=== PATIENT | female | born 1965 | race Caucasian/White ===

== ENCOUNTER 2017-05-29 13:15 | Emergency (ER) | payer MEDICARE ==
[~2017-05-29] VITALS: Ht 175.3 cm; Wt 106.6 kg
[~2017-05-29 13:15] MED LIST: AMLO10TA2 PO; CYCL10TA2 PO; FENT1PAT13 TD; FLUO40CA2 PO; HYDR-963 PO; LINA145C PO; ONDA4TAB7 PO; OXYC10TA45 PO; PREG100C PO; PROAIR HFA8.5 GM IH
[2017-05-29 14:03] VITALS: BP 150/70
[2017-05-29] MEDS ORDERED: DOXY100C2 PO (14:37)
[2017-05-29] MEDS ORDERED: MUPI15CR TP (14:37)
--- NOTE | 2017-05-29 14:37 | PHYS DOC ---
Past Medical History Past Medical History: Anxiety, Depression, Fibromyalgia, Hypertension, Migraines Past Surgical History: Other Additional Past Surgical Histo: ankle surgery, PLATE REMOVED FROM ANKLE Alcohol Use: None Drug Use: None Adult General Chief Complaint Chief Complaint: Congestion HPI HPI Patient is a 52 year old female presents to the emergency department stating that she has some sores on the right side of her neck that has been healing and then appears to come back. She states that she's been having these for the last month. She states that she's been placing antibiotic ointment over the area with relief. Patient then states she's had a nasal congestion with sinus pressure for the last few days. She denies fever, chills or any nausea or vomiting. She does state that she's had a cough this been nonproductive. She does state that she has some wheezing and feels short of air at times. Patient does state she has a history of smoking. Review of Systems Review of Systems Constitutional: Denies fever or chills [] Eyes: Denies change in visual acuity, redness, or eye pain [] HENT: nasal congestion denies sore throat [] Respiratory: cough and shortness of breath [] Cardiovascular: No additional information not addressed in HPI [] GI: Denies abdominal pain, nausea, vomiting, bloody stools or diarrhea [] : Denies dysuria or hematuria [] Musculoskeletal: Denies back pain or joint pain [] Integument: Denies rash or skin lesions [] Neurologic: Denies headache, focal weakness or sensory changes [] Endocrine: Denies polyuria or polydipsia [] Current Medications Current Medications Current Medications Medications (Trade) Dose Ordered Sig/[facility] Start Time Stop Time Status Last Admin Dose Admin Albuterol/ Ipratropium (Duoneb) 3 ml 1X ONCE 05/29/17 14:45 05/29/17 14:46 DC 05/29/17 15:01 3 ML Allergies Allergies Allergies Coded Allergies Type Severity Reaction Last Updated Verified No Known Drug Allergies 09/08/13 No Physical Exam Physical Exam Constitutional: Well developed, well nourished, no acute distress, non-toxic appearance. [] HENT: Normocephalic, atraumatic, bilateral external ears normal, oropharynx moist, no oral exudates, nose normal. Bilateral tympanic membranes appear to be normal throat with postnasal drip and slightly red no exudate or erythematous noted. No uvula deviation. Eyes: PERRLA, EOMI, conjunctiva normal, no discharge. [] Neck: Normal range of motion, no tenderness, supple, no stridor. [] Cardiovascular:Heart rate regular rhythm, no murmur [] Lungs & Thorax: Right posterior lungs appear to be loose wheezing. Skin: Warm, dry, no erythema, patient with open sores noted on the right side of the neck no drainage or discharge coming from the site. Back: No tenderness Extremities: No tenderness, no cyanosis, no clubbing, ROM intact, no edema. [] Neurologic: Alert and oriented X 3, normal motor function, normal sensory function, no focal deficits noted. [] Psychologic: Affect normal, judgement normal, mood normal. [] Current Patient Data Vital Signs Vital Signs Date Time Temp Pulse Resp B/P (MAP) Pulse Ox O2 Delivery O2 Flow Rate FiO2 05/29/17 15:02 97 Room Air 05/29/17 14:03 97.8 84 18 97.8 EKG EKG [] Radiology/Procedures Radiology/Procedures [] Course & Med Decision Making Course & Med Decision Making Pertinent Labs and Imaging studies reviewed. (See chart for details) Patient was provided with respiratory treated. Patient states she feels better. She will be discharged home. Patient will be placed on doxycycline for an upper respiratory infection. She'll be provided with a pro-air inhaler to help with shortness of air and wheezing. She'll also be placed on prednisone. Recommended [id number] Tylenol or ibuprofen for fever chills or generalized body aches and discomfort. Patient will be discharged home in stable condition signs and symptoms to return back to the emergency department as been provided. All questions and concerns have been answered at patient's bedside. [] Dragon Disclaimer Dragon Disclaimer This electronic medical record was generated, in whole or in part, using a voice recognition dictation system. Departure Departure Impression: Primary Impression: Acute sinusitis Disposition: 01 HOME, SELF-CARE Condition: STABLE Referrals: ANTWAN CURTIS MD (PCP) Patient Instructions: Sinusitis, Gepl-hq-Peul, Smoking Cessation, Tips For Success Additional Instructions: Activity as tolerated. Medications as prescribed. Tylenol or ibuprofen for fever chills or generalized body aches and discomfort. 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 Drink plenty of fluids. Stop smoking. Follow-up to primary care physician in the next week. Return back to emergency prior signs symptoms of become worse. Scripts Prednisone (PREDNISONE) 20 Mg Tablet 40 MG PO DAILY for 7 Days, #14 TAB Prov: JIMBO RAMIREZ APRN 05/29/17 Albuterol Sulfate (ALBUTEROL SULFATE CONC NEB SOLN) 2.5 Mg/0.5 Ml Vial.neb 1 VIAL NEB Q6HRS, #120 VIAL 0 Refills Prov: JIMBO RAMIREZ APRN 05/29/17 Albuterol Sulfate (PROAIR HFA INHALER) 8.5 Gm Hfa.aer.ad 1 PUFF INH PRN Q6HRS Y for SHORTNESS OF BREATH, #1 INHALER 0 Refills Prov: JIMBO RAMIREZ APRN 05/29/17 Mupirocin Calcium (BACTROBAN CREAM) 15 Gm Cream..g. 1 FREDO TP TID, #30 GM Prov: JIMBO RAMIREZ APRN 05/29/17 Doxycycline Hyclate (DOXYCYCLINE HYCLATE) 100 Mg Capsule 1 CAP PO BID, #20 CAP Prov: JIMBO RAMIREZ APRN 05/29/17 Problem Qualifiers Primary Impression: Acute sinusitis Sinusitis location: unspecified location Recurrence: not specified as recurrent Qualified Codes: J01.90 - Acute sinusitis, unspecified JIMBO RAMIREZ APRN May 29, 2017 14:37
[2017-05-29] MEDS ORDERED: PROAIR HFA8.5 GM INH (14:38)
[2017-05-29] MEDS ORDERED: IPRATRPIUM/ALBUTEROL 0.5/2.5MG 3 ML NEBU. NEB ONE (14:45)
[2017-05-29] MEDS ORDERED: ALBU2.5V14 NEB (15:05)
[2017-05-29] MEDS ORDERED: PRED20TA PO (15:13)
== END 2017-05-29 15:20 | disposition home or self-care (01) ==
LOC: ER 13:15
DX: J01.90 Acute sinusitis, unspecified (principal); M54.2 Cervicalgia; I10 Essential (primary) hypertension; M79.7 Fibromyalgia; G43.909 Migraine, unspecified, not intractable, without status migrainosus
CPT/HCPCS: 94250; 94640; 94760; 99283; J7620

== ENCOUNTER 2017-10-27 01:49 | Emergency (ER) | payer MEDICARE ==
[2017-10-27 02:41] LABS: ADD MAN DIFF? NO
[2017-10-27 02:43] LABS: BASO # 0.2 x10^3/uL (0.0-0.2); BASO % 1 % (0-3); EOS # 0.2 x10^3/uL (0.0-0.7); EOS % 2 % (0-3); HEMATOCRIT 43.7 % (36.0-47.0); HEMOGLOBIN 15.2 g/dL (12.0-15.5); LYMPH # 3.2 x10^3/uL (1.0-4.8); LYMPH % 23 % (24-48); MEAN CORPUSCULAR HEMOGLOBIN 33 pg (25-35); MEAN CORPUSCULAR HGB CONC 35 g/dL (31-37); MEAN CORPUSCULAR VOLUME 94 fL (79-100); MONO # 0.6 x10^3/uL (0.0-1.1); MONO % 4 % (0-9); NEUT # 9.7 x10^3uL (1.8-7.7); NEUT % 70 % (31-73); PLATELET COUNT 331 x10^3/uL (140-400); RED BLOOD COUNT 4.63 x10^6/uL (3.50-5.40); RED CELL DISTRIBUTION WIDTH 16.4 % (11.5-14.5); WHITE BLOOD COUNT 13.9 x10^3/uL (4.0-11.0)
[2017-10-27 02:54] LABS: ANION GAP 9 (6-14); BILIRUBIN,URINE NEGATIVE (NEG); BLOOD UREA NITROGEN 12 mg/dL (7-20); BUN/CREATININE RATIO 17 (6-20); CALCIUM 8.8 mg/dL (8.5-10.1); CARBON DIOXIDE 27 mmol/L (21-32); CHLORIDE 101 mmol/L (98-107); CLARITY,URINE CLEAR; COLOR,URINE YELLOW; CREATININE 0.7 mg/dL (0.6-1.0); GFR 88.2; GLUCOSE 101 mg/dL (70-99); GLUCOSE,URINE NEGATIVE (NEG); NITRITE,URINE NEGATIVE (NEG); POTASSIUM 3.5 mmol/L (3.5-5.1); PROTEIN,URINE NEGATIVE (NEG-TRACE); SODIUM 137 mmol/L (136-145); UROBILINOGEN,URINE 0.2 mg/dL (0.2 mg/dL)
[2017-10-27 03:00] LABS: ALBUMIN 3.7 g/dL (3.4-5.0); ALBUMIN/GLOBULIN RATIO 0.9 (1.0-1.7); ALK PHOS 93 U/L (46-116); ALT (SGPT) 20 U/L (14-59); AST (SGOT) 21 U/L (15-37); TOTAL BILIRUBIN 0.2 mg/dL (0.2-1.0); TOTAL PROTEIN 7.6 g/dL (6.4-8.2)
[2017-10-27 03:01] LABS: BACTERIA,URINE 0 /HPF (0-FEW); RBC,URINE 0 /HPF (0-2); SQUAMOUS EPITHELIAL CELL,UR MANY /LPF; WBC,URINE OCC /HPF (0-4); YEAST,URINE PRESENT /HPF
== END 2017-10-27 03:50 | disposition home or self-care (01) ==
LOC: ER 01:49
DX: R10.30 Lower abdominal pain, unspecified (principal); B37.2 Candidiasis of skin and nail; E78.00 Pure hypercholesterolemia, unspecified; G89.29 Other chronic pain; J44.9 Chronic obstructive pulmonary disease, unspecified; M79.7 Fibromyalgia; I10 Essential (primary) hypertension
CPT/HCPCS: 36415; 80053; 81001; 85025; 99284

== ENCOUNTER 2018-07-13 20:02 | Emergency (ER) | payer MEDICARE ==
[~2018-07-13] VITALS: Ht 172.7 cm; Wt 106.6 kg
[~2018-07-13 20:02] MED LIST changes: +ALBU2.5V14 NEB; -AMLO10TA2 PO; +AMLO10TA6 PO; +CLOT12CR2 TP; +DOXY100C2 PO; +MUPI15CR TP; +PRED20TA PO; +PROAIR HFA8.5 GM INH
[2018-07-13 20:50] LABS: BASO % 0 % (0-3); EOS # 0.2 x10^3/uL (0.0-0.7); EOS % 1 % (0-3); HEMATOCRIT 43.6 % (36.0-47.0); HEMOGLOBIN 15.3 g/dL (12.0-15.5); LYMPH # 3.2 x10^3/uL (1.0-4.8); LYMPH % 26 % (24-48); MEAN CORPUSCULAR HEMOGLOBIN 33 pg (25-35); MEAN CORPUSCULAR HGB CONC 35 g/dL (31-37); MEAN CORPUSCULAR VOLUME 94 fL (79-100); MONO # 0.5 x10^3/uL (0.0-1.1); MONO % 4 % (0-9); NEUT # 8.3 x10^3uL (1.8-7.7); NEUT % 68 % (31-73); PLATELET COUNT 266 x10^3/uL (140-400); RED BLOOD COUNT 4.63 x10^6/uL (3.50-5.40); RED CELL DISTRIBUTION WIDTH 15.7 % (11.5-14.5); WHITE BLOOD COUNT 12.2 x10^3/uL (4.0-11.0)
--- NOTE | 2018-07-13 20:58 | PHYS DOC ---
Past Medical History Past Medical History: Anxiety, Asthma, COPD, Depression, Fibromyalgia, High Cholesterol, Hypertension, Migraines, Other Additional Past Medical Histor: CHRONIC PAIN Past Surgical History: Other Additional Past Surgical Histo: ankle surgery, PLATE REMOVED FROM ANKLE Additional Information: 0.75 PPD Alcohol Use: None Drug Use: None Adult General Chief Complaint Chief Complaint: DIZZY/LIGHT HEADED HPI HPI 53-year-old female presents to ER via POV with complaints of dizziness, generalized fatigue, and N/V. Pt reports for past 2 wks she has had intermittent dizziness. She reports last wk she developed sore throat, ear pressure and sinus congestion. Pt reports 2 days ago she felt the rt side of her body was "not working right" and she felt confused. Pt's shahbaz Enciso denies pt with change in LOC or mental status. He denies pt with recent fall/injury. Pt denies CP, palpitations, shortness of air, abdominal pain, or diarrhea. Patient reports she had 1 episode of vomiting this morning but has had intermittent nausea throughout today. Eyes urinary symptoms. Patient reports she has had some decreased appetite today but feels she has been drinking adequate amount of water. Patient reports she had approximately 4 cups of caffeinated coffee today. Patient denies any eye pain, vision changes, or floaters. Patient denies history of migraines or headaches. Patient reports she does have history of fibromyalgia and chronic back pain which she took her hydrocodone 10/325 tablet today. She reports she is also on Lyrica for chronic pain. Patient's chyna Enciso stated he was rubbing the back side of patient's head on the left side where she felt she had a knot present. Patient reportedly when he was rubbing the left side of her posterior head she had right side head pain. Patient reports taking 81 mg aspirin today because she was uncertain of what was causing her symptoms and her father takes an aspirin daily. Review of Systems Review of Systems Constitutional: Denies fever. Denies lethargy. Reports intermittent chills Eyes: Denies change in visual acuity, redness, or eye pain [] HENT: Reports sinus congestion and sore throat. Reports bilateral ear pressure. Denies difficulty swallowing or pooling of secretions Respiratory: Denies cough or shortness of breath [] Cardiovascular: Denies chest pain or palpitations GI: Denies abdominal pain, bloody stools or diarrhea. Reports intermittent nausea with 1 episode of vomiting today : Denies dysuria or hematuria. Denies incontinence Musculoskeletal: Reports chronic back and joint pain with history of fibromyalgia and chronic pain denies acute change Integument: Denies rash, swelling or skin lesions [] Neurologic: Reports mild headache earlier today with symptoms subsiding. Reports 2 day history of "right side of body not working right". Reports numbness and weakness in right side. All other systems were reviewed and found to be within normal limits, except as documented in this note. Current Medications Current Medications Current Medications Medications (Trade) Dose Ordered Sig/[place] Start Time Stop Time Status Last Admin Dose Admin Ondansetron HCl (Zofran) 4 mg 1X ONCE 07/13/18 21:30 07/13/18 21:31 DC 07/13/18 21:27 4 MG Potassium Chloride (Klor-Con) 20 meq STK-MED ONCE 07/13/18 21:23 07/13/18 21:24 DC Sodium Chloride 1,000 ml @ 1,000 mls/hr 1X ONCE 07/13/18 21:30 07/13/18 22:29 DC 07/13/18 21:27 1,000 MLS/HR Allergies Allergies Allergies Coded Allergies Type Severity Reaction Last Updated Verified No Known Drug Allergies 09/08/13 No Physical Exam Physical Exam Constitutional: Well developed, well nourished, no acute distress, non-toxic appearance. [] HENT: Normocephalic, atraumatic, mild rt erythema at TM with no purulent drainage/bleeding, lt ear exam NL, bilat. external ear NL, mucous membranes pink /dry, no pharyngeal or tonsillar swelling/erythema. No oral exudates, nose normal. [] Eyes: 3mm PERRLA, EOMI- no eye pain with movements, no nystagmus, conjunctiva normal, no discharge. [] Neck: Normal range of motion, no tenderness, supple, no gross adenopathy. No rigidity or neck stiffness Cardiovascular:Heart rate regular rhythm, no murmur [] Lungs & Thorax: Bilateral breath sounds clear to auscultation. Respirations equal and nonlabored Abdomen: Bowel sounds normal, soft/nondistended, no tenderness, no masses, no pulsatile masses. [] Skin: Warm, dry, no erythema, no rash. [] Back: Diffuse tenderness and back with patient reporting chronic back pain with no acute change-able to perform full range of motion without assistance, no CVA tenderness. [] Extremities: Left ankle tenderness on palpation with patient reporting history of chronic pain no acute change-swelling or skin discoloration. Dorsal pedis/ pedal pulse equal bilateral, no cyanosis, no clubbing, ROM intact, no edema. [] Neurologic: Alert and oriented X 3, normal motor function, no focal deficits noted. [] Psychologic: Affect normal, judgement normal, mood normal. [] Current Patient Data Vital Signs Vital Signs Date Time Temp Pulse Resp B/P (MAP) Pulse Ox O2 Delivery O2 Flow Rate FiO2 07/13/18 23:21 90 95 07/13/18 20:06 98.4 14 146/66 (92) Room Air 98.4 Lab Values Laboratory Tests Test 07/13/18 20:40 07/13/18 21:06 White Blood Count 12.2 x10^3/uL (4.0-11.0) H Red Blood Count 4.63 x10^6/uL (3.50-5.40) Hemoglobin 15.3 g/dL (12.0-15.5) Hematocrit 43.6 % (36.0-47.0) Mean Corpuscular Volume 94 fL (79-100) Mean Corpuscular Hemoglobin 33 pg (25-35) Mean Corpuscular Hemoglobin Concent 35 g/dL (31-37) Red Cell Distribution Width 15.7 % (11.5-14.5) H Platelet Count 266 x10^3/uL (140-400) Neutrophils (%) (Auto) 68 % (31-73) Lymphocytes (%) (Auto) 26 % (24-48) Monocytes (%) (Auto) 4 % (0-9) Eosinophils (%) (Auto) 1 % (0-3) Basophils (%) (Auto) 0 % (0-3) Neutrophils # (Auto) 8.3 x10^3uL (1.8-7.7) H Lymphocytes # (Auto) 3.2 x10^3/uL (1.0-4.8) Monocytes # (Auto) 0.5 x10^3/uL (0.0-1.1) Eosinophils # (Auto) 0.2 x10^3/uL (0.0-0.7) Basophils # (Auto) 0.0 x10^3/uL (0.0-0.2) Sodium Level 141 mmol/L (136-145) Potassium Level 2.9 mmol/L (3.5-5.1) *L Chloride Level 103 mmol/L (98-107) Carbon Dioxide Level 28 mmol/L (21-32) Anion Gap 10 (6-14) Blood Urea Nitrogen 9 mg/dL (7-20) Creatinine 0.7 mg/dL (0.6-1.0) Estimated GFR (Cockcroft-Gault) 87.9 BUN/Creatinine Ratio 13 (6-20) Glucose Level 161 mg/dL (70-99) H Calcium Level 9.1 mg/dL (8.5-10.1) Magnesium Level 2.2 mg/dL (1.8-2.4) Total Bilirubin 0.3 mg/dL (0.2-1.0) Aspartate Amino Transferase (AST) 12 U/L (15-37) L Alanine Aminotransferase (ALT) 22 U/L (14-59) Alkaline Phosphatase 109 U/L (46-116) Troponin I Quantitative < 0.017 ng/mL (0.000-0.055) Total Protein 7.5 g/dL (6.4-8.2) Albumin 3.5 g/dL (3.4-5.0) Albumin/Globulin Ratio 0.9 (1.0-1.7) L Lipase 125 U/L (73-393) Urine Collection Type Unknown Urine Color Yellow Urine Clarity Clear Urine pH 5.5 Urine Specific What Cheer 1.020 Urine Protein Negative mg/dL (NEG-TRACE) Urine Glucose (UA) Negative mg/dL (NEG) Urine Ketones (Stick) Negative mg/dL (NEG) Urine Blood Negative (NEG) Urine Nitrite Negative (NEG) Urine Bilirubin Negative (NEG) Urine Urobilinogen Dipstick 0.2 mg/dL (0.2 mg/dL) Urine Leukocyte Esterase Negative (NEG) Urine RBC Occ /HPF (0-2) Urine WBC 1-4 /HPF (0-4) Urine Squamous Epithelial Cells Mod /LPF Urine Bacteria Few /HPF (0-FEW) Urine Mucus Marked /LPF Urine Yeast Present /HPF Laboratory Tests 07/13/18 20:40 Laboratory Tests 07/13/18 20:40 EKG EKG EKG obtained 07/13/18 at 2035 Interpreted by ER physician Sinus rhythm Nonspec. T wave abnorm. Vent rate 72 No acute STEMI Radiology/Procedures Radiology/Procedures PROCEDURE: CT HEAD WO CONTRAST PQRS Compliance statement: One or more of the following individualized dose reduction techniques were utilized for this examination: 1. Automated exposure control. 2. Adjustment of the mA and/or kV according to patient size. 3. Use of iterative reconstruction technique. Indication:WORSENING DIZZINESS X 1 MONTH, PAIN AND SWELLING BEHIND LEFT EAR PER PATIENT, NO PRIORS TECHNIQUE: CT head without IV contrast COMPARISON:None FINDINGS: No pathologic extra-axial or intra-axial fluid collection. The ventricles and basal cisterns are within normal limits. No acute intracranial bleed. No focal loss of pelayo-white differentiation. Orbits within normal limits. No suspicious calvarial lesion. Visualized paranasal sinuses and mastoid air cells are clear. IMPRESSION: No acute intracranial process. Electronically signed by: Marty Loo DO (07/13/2018 9:10 PM) [facility] DICTATED and SIGNED BY: MARTY LOO DO DATE: 07/13/182107 Course & Med Decision Making Course & Med Decision Making Pertinent Labs and Imaging studies reviewed. (See chart for details) 2139: Discussed K+ 2.9 with pt along with orthostatic VS with pt's HR in 60s while supine and with standing went to 80's- pt reports she did feel dizzy with position changes. Patient's head CT was negative for acute findings. EKG with no acute ST elevation or STEMI and troponin was <0.017. Discussed plans to replace potassium with 40 mEq while in the ER and IV fluid bolus would be given. Patient at this time reports she has also been taking qnoz-jvq-kbhqitn sinus medication and hasn't been drinking as much fluids has she probably should be. She remains nontoxic and in no distress at this time. 2154: Discussed pt's case and plan of care with Dr. Owens who viewed pt's chest xray with no obvious acute findings viewed. Discussed plans for home discharge with dehydration education. Pt will f/u with PCP in next 2-3 days for re-evaluation with pt advised on having K+ rechecked. Pt reports with IV flds her dizziness has subsided and she is feeling much better than at time of arrival to ER. She is in no visible distress and is wanting discharged home as her sxs have improved. Discussed discharge plan with pt and her fiance. Smoking cessation discussed. Pt advised on increasing flds and avoiding further use of sinus medications. Dragon Disclaimer Dragon Disclaimer This electronic medical record was generated, in whole or in part, using a voice recognition dictation system. Departure Departure Impression: Primary Impression: Dehydration Additional Impressions: Hypokalemia Dizziness Disposition: HOME, SELF-CARE Condition: STABLE Referrals: ANTWAN CURTIS MD (PCP) Follow-up with primary care physician in next 2-3 days for reevaluation sooner with any concerns Patient Instructions: Dehydration, Adult, Dizziness, Hypokalemia Additional Instructions: Avoid use of sinus medication. Increase fluid intake-avoid caffeinated products and eat well-balanced meal. Follow-up with primary care physician in next 2-3 days to have potassium rechecked and for reevaluation. Sooner with any concerns or worsening symptoms. Avoid smoking. Continue home medications as previously prescribed. Problem Qualifiers ROLY MÉNDEZ APRN Jul 13, 2018 20:58
[2018-07-13 21:05] LABS: ALBUMIN 3.5 g/dL (3.4-5.0); ALBUMIN/GLOBULIN RATIO 0.9 (1.0-1.7); CALCIUM 9.1 mg/dL (8.5-10.1); CREATININE 0.7 mg/dL (0.6-1.0); GFR 87.9; MAGNESIUM 2.2 mg/dL (1.8-2.4); TOTAL BILIRUBIN 0.3 mg/dL (0.2-1.0); TOTAL PROTEIN 7.5 g/dL (6.4-8.2)
[2018-07-13 21:09] LABS: POTASSIUM 2.9 mmol/L (3.5-5.1)
--- NOTE | 2018-07-13 21:12 | RAD ---
PQRS Compliance statement: One or more of the following individualized dose reduction techniques were utilized for this examination: 1. Automated exposure control. 2. Adjustment of the mA and/or kV according to patient size. 3. Use of iterative reconstruction technique. Indication:WORSENING DIZZINESS X 1 MONTH, PAIN AND SWELLING BEHIND LEFT EAR PER PATIENT, NO PRIORS TECHNIQUE: CT head without IV contrast COMPARISON:None FINDINGS: No pathologic extra-axial or intra-axial fluid collection. The ventricles and basal cisterns are within normal limits. No acute intracranial bleed. No focal loss of pelayo-white differentiation. Orbits within normal limits. No suspicious calvarial lesion. Visualized paranasal sinuses and mastoid air cells are clear. IMPRESSION: No acute intracranial process. Electronically signed by: Marty Loo DO (07/13/2018 9:10 PM) [facility]
[2018-07-13 21:16] LABS: BILIRUBIN,URINE NEGATIVE (NEG); CLARITY,URINE CLEAR; COLOR,URINE YELLOW; NITRITE,URINE NEGATIVE (NEG); PH,URINE 5.5; PROTEIN,URINE NEGATIVE (NEG-TRACE); UROBILINOGEN,URINE 0.2 mg/dL (0.2 mg/dL)
[2018-07-13 21:21] LABS: BACTERIA,URINE FEW /HPF (0-FEW); RBC,URINE OCC /HPF (0-2); SQUAMOUS EPITHELIAL CELL,UR MOD /LPF; YEAST,URINE PRESENT /HPF
[2018-07-13] MEDS ORDERED: POTASSIUM CHLORIDE 20 MEQ TABLET.ER. PO ONE ×2 (21:23→21:45)
[2018-07-13] MEDS ORDERED: IV NORMAL SALINE 1000ML BAG 1,000 ML IV ONE (21:30)
[2018-07-13] MEDS ORDERED: ONDANSETRON PF 4 MG/2 ML VIAL. IV ONE (21:30)
[2018-07-13 23:21] VITALS: BP 165/85
--- NOTE | 2018-07-14 00:06 | RAD ---
PROCEDURE: CHEST AP ONLY CLINICAL INDICATION: cough x 2 days COMPARISON: None FINDINGS: Heart is normal in size. Prominent bronchial markings. No focal consolidation. No pneumothorax or pleural effusion. Visualized bony thorax within normal limits. IMPRESSION: Mild bronchitis. Electronically signed by: Marty Loo DO (07/14/2018 12:03 AM) [facility]
--- NOTE | 2018-07-14 06:17 | EKG ---
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
== END 2018-07-13 22:55 | disposition home or self-care (01) ==
LOC: ER 20:02
DX: R42 Dizziness and giddiness (principal); E86.0 Dehydration; E87.6 Hypokalemia; R05 Cough; J44.9 Chronic obstructive pulmonary disease, unspecified; E78.00 Pure hypercholesterolemia, unspecified; I10 Essential (primary) hypertension; G43.909 Migraine, unspecified, not intractable, without status migrainosus; G89.29 Other chronic pain; F17.200 Nicotine dependence, unspecified, uncomplicated
CPT/HCPCS: 36415; 70450; 71045; 80053; 81001; 83690; 83735; 84484; 85025; 93005; 96361; 96374; 99285; J2405; J7030

== ENCOUNTER 2018-12-18 03:35 | Emergency (ER) | payer MEDICARE ==
[~2018-12-18] VITALS: Ht 162.6 cm; Wt 104.3 kg
[~2018-12-18 03:35] MED LIST changes: +ALBU2.5V8 IH; +ALBU2.5V8 INH; -AMLO10TA6 PO; +AMLO10TA8 PO; +HYDR-3135 PO; -HYDR-963 PO; -LINA145C PO; +LINZESS145 MCG PO; -OXYC10TA45 PO; +OXYC10TA46 PO; -PROAIR HFA8.5 GM IH; -PROAIR HFA8.5 GM INH
[2018-12-18 03:46] VITALS: BP 163/71
[2018-12-18] MEDS ORDERED: MAGN296S9 PO (04:03)
[2018-12-18] MEDS ORDERED: SENN-121 PO (04:03)
[2018-12-18] MEDS ORDERED: NYST15PO9 TP (04:03)
--- NOTE | 2018-12-18 04:03 | PHYS DOC ---
Past Medical History Past Medical History: Anxiety, Asthma, COPD, Depression, Fibromyalgia, High Cholesterol, Hypertension, Migraines, Other Additional Past Medical Histor: CHRONIC PAIN Past Surgical History: Other Additional Past Surgical Histo: ankle surgery, PLATE REMOVED FROM ANKLE Alcohol Use: None Drug Use: None Adult General Chief Complaint Chief Complaint: ABSCESS HPI HPI Patient is a 53 year old [f__sex] who presents with [] Review of Systems Review of Systems Constitutional: Denies fever or chills [] Eyes: Denies change in visual acuity, redness, or eye pain [] HENT: Denies nasal congestion or sore throat [] Respiratory: Denies cough or shortness of breath [] Cardiovascular: No additional information not addressed in HPI [] GI: Denies abdominal pain, nausea, vomiting, bloody stools or diarrhea [] : Denies dysuria or hematuria [] Musculoskeletal: Denies back pain or joint pain [] Integument: Denies rash or skin lesions [] Neurologic: Denies headache, focal weakness or sensory changes [] Endocrine: Denies polyuria or polydipsia [] All other systems were reviewed and found to be within normal limits, except as documented in this note. Allergies Allergies Allergies Coded Allergies Type Severity Reaction Last Updated Verified No Known Drug Allergies 09/08/13 No Physical Exam Physical Exam Constitutional: Well developed, well nourished, no acute distress, non-toxic appearance. [] HENT: Normocephalic, atraumatic, bilateral external ears normal, oropharynx moist, no oral exudates, nose normal. [] Eyes: PERRLA, EOMI, conjunctiva normal, no discharge. [] Neck: Normal range of motion, no tenderness, supple, no stridor. [] Cardiovascular:Heart rate regular rhythm, no murmur [] Lungs & Thorax: Bilateral breath sounds clear to auscultation [] Abdomen: Bowel sounds normal, soft, no tenderness, no masses, no pulsatile masses. [] Skin: Warm, dry, no erythema, no rash. [] Back: No tenderness, no CVA tenderness. [] Extremities: No tenderness, no cyanosis, no clubbing, ROM intact, no edema. [] Neurologic: Alert and oriented X 3, normal motor function, normal sensory function, no focal deficits noted. [] Psychologic: Affect normal, judgement normal, mood normal. [] Current Patient Data Vital Signs Vital Signs Date Time Temp Pulse Resp B/P (MAP) Pulse Ox O2 Delivery O2 Flow Rate FiO2 12/18/18 03:46 98.3 90 18 163/71 (101) 97 Room Air 98.3 EKG EKG [] Radiology/Procedures Radiology/Procedures [] Course & Med Decision Making Course & Med Decision Making Pertinent Labs and Imaging studies reviewed. (See chart for details) [] Dragon Disclaimer Dragon Disclaimer This electronic medical record was generated, in whole or in part, using a voice recognition dictation system. Departure Departure Impression: Primary Impression: Cough Additional Impressions: Hx of fever Constipation Yeast dermatitis Disposition: HOME, SELF-CARE Condition: STABLE Referrals: ANTWAN CURTIS MD (PCP) Patient Instructions: Constipation, Adult, Afyq-kf-Hzpd, Cough, Adult, Easy-to- Read, Cutaneous Candidiasis, Fever, Adult, [id number]-[id number] Scripts Magnesium Citrate (MAGNESIUM CITRATE) 296 Ml Solution 296 ML PO ONCE, #296 ML Prov: REJI TELLEZ DO 12/18/18 Sennosides/Docusate Sodium (Colace 2-in-1 Tablet) 1 Each Tablet 1-2 EACH PO QHS for Prevent Constipation, #30 TAB Prov: REJI TELLEZ DO 12/18/18 Nystatin (NYSTATIN) 15 Gm Powder 1 FREDO TP BID PRN for RASH, #1 BOTTLE Prov: REJI TELLEZ DO 12/18/18 Problem Qualifiers Additional Impressions: Constipation Constipation type: unspecified constipation type Qualified Codes: K59.00 - Constipation, unspecified REJI TELLEZ DO Dec 18, 2018 04:03
--- NOTE | 2018-12-18 04:35 | RAD ---
PA and lateral chest radiographs 12/18/2018 CLINICAL HISTORY: Cough. Fever. PA and lateral digital radiographs of the chest were obtained. Comparison study is dated 07/13/2018. The cardiac and mediastinal silhouettes are within normal limits in size and configuration. No acute pulmonary infiltrate is seen. No pleural effusion or pneumothorax is noted. Mild degenerative changes are seen involving the thoracic spine. IMPRESSION: No acute abnormality is seen. Electronically signed by: Galen Jacobsen MD (12/18/2018 4:32 AM) [facility]
== END 2018-12-18 04:12 | disposition home or self-care (01) ==
LOC: ER 03:35
DX: B36.8 Other specified superficial mycoses (principal); K59.00 Constipation, unspecified; R50.9 Fever, unspecified; R05 Cough; I10 Essential (primary) hypertension; J44.9 Chronic obstructive pulmonary disease, unspecified; E78.00 Pure hypercholesterolemia, unspecified; G43.909 Migraine, unspecified, not intractable, without status migrainosus; F41.9 Anxiety disorder, unspecified; G89.29 Other chronic pain
CPT/HCPCS: 71046; 99283